=== PATIENT | male | born 1980 | race Caucasian/White ===

== ENCOUNTER 2022-11-05 19:22 | Emergency (ER) | payer SELFPAY ==
[~2022-11-05] VITALS: Ht 188 cm; Wt 109.0 kg
[2022-11-05] MEDS ORDERED: morphine INJ 10 MG/ML 1ML (SYR OR VIAL) IM STA (19:32)
[2022-11-05] MEDS ORDERED: morphine INJ 10 MG/ML 1ML (SYR OR VIAL) ONE (19:32)
--- NOTE | 2022-11-05 19:32 | ED Fall/Injury ---
General Chief Complaint: Trauma-Non Activation Stated Complaint: FALL Source: patient Exam Limitations: no limitations History of Present Illness Date Seen by Provider: Nov 05, 2022 Time Seen by Provider: 19:25 Initial Comments 42-year-old male with no pertinent past medical history coming in after he fell roughly 10 to 12 feet from a ladder landing on his sacrum. Happened shortly prior to arrival. Has been ambulatory. Denies any weakness or numbness. Havi ng severe lower back pain which is sharp, worse with movement, better with rest. Otherwise denies any other acute complaints. Did not hit his head or pass out. Does not take any medicines including no blood thinners. Allergies and Home Medications Allergies Coded Allergies: No Known Drug Allergies (Unverified , 11/05/22) Patient Home Medication List Home Medication List Reviewed: Yes Discontinued Medications Hydrocodone/Acetaminophen (Hydrocodone-Acetamin 5-325 mg) 5 Mg-325 Mg Tablet, 1 TAB PO Q8H PRN for PAIN-MODERATE (5-7) Prescribed by: KARTHIK RIBEIRO on 11/05/222006 Review of Systems Review of Systems Constitutional: No fever Eyes: No Symptoms Reported Ears, Nose, Mouth, Throat: no symptoms reported Respiratory: no symptoms reported Cardiovascular: no symptoms reported Gastrointestinal: no symptoms reported Genitourinary: no symptoms reported Musculoskeletal: see HPI Skin: no symptoms reported Psychiatric/Neurological: No Symptoms Reported Past Vqfainj-Pqfksb-Akhhvo Hx Patient Social History Substance use?: No Past Medical History Surgery/Hospitalization HX: Rotator cuff surgery Surgeries: Yes Physical Exam Vital Signs Vital Signs - First Documented 11/05/22 11/05/22 19:30 19:40 Temp 36.7 Pulse 103 Resp 20 B/P (MAP) 129/82 (98) Pulse Ox 100 Capillary Refill : Height, Weight, BMI Height: '" Weight: lbs. oz. kg; BMI Method: General Appearance: WD/WN, mild distress HEENT: PERRL/EOMI, normal ENT inspection, pharynx normal Neck: non-tender, full range of motion, supple, normal inspection Cardiovascular: regular rate, rhythm, no edema, no murmur Respiratory: chest non-tender, lungs clear, normal breath sounds, no respiratory distress, no accessory muscle use Gastrointestinal: normal bowel sounds, non tender, soft; No distended, No guarding, No rebound Back: normal inspection, no CVA tenderness, vertebral tenderness (Lumbar spine, no thoracic or cervical spine tenderness) Extremities: normal range of motion, non-tender, normal inspection, no pedal edema, no calf tenderness, normal capillary refill Neurologic/Psychiatric: no motor/sensory deficits, alert, normal mood/affect, oriented x 3 Skin: normal color, warm/dry Nimitz Coma Score Best Eye Response: (4) Open Spontaneously Best Verbal Response: (5) Oriented Best Motor Response: (6) Obeys Commands Progress/Results/Core Measures Results/Orders My Orders Orders - KARTHIK RIBEIRO MD Morphine Injection (Morphine Injection (11/05/22 19:32) Ct Lumbar Spine Wo (11/05/22 19:32) Ct Pelvis Wo (11/05/22 19:32) Morphine Injection (Morphine Injection (11/05/22 19:32) Oxycodone Immediate Rel Tablet (Oxyir Ta (11/05/22 20:00) Ketorolac Injection (Toradol Injection) (11/05/22 20:00) Ondansetron Oral Dissolve Tab (Zofran (11/05/22 19:47) Acetaminophen Tablet (Tylenol Tablet) (11/05/22 20:00) Rx-Hydrocodone/Apap 5-325 Mg (Rx-Vicodin (11/05/22 20:15) Medications Given in ED Current Medications Medications Dose Ordered Sig/Sebastián Route Start Time Stop Time Status Last Admin Dose Admin Acetaminophen 1,000 mg ONCE ONCE PO 11/05/22 20:00 11/05/22 20:01 DC 11/05/22 19:56 1,000 MG Acetaminophen/ Hydrocodone Bitart 1 ea Q6H PRN PO 11/05/22 20:15 11/05/22 20:43 DC 11/05/22 20:15 1 EA Ketorolac Tromethamine 15 mg ONCE ONCE IM 11/05/22 20:00 11/05/22 20:01 DC 11/05/22 19:55 15 MG Oxycodone HCl 5 mg ONCE ONCE PO 11/05/22 20:00 11/05/22 20:01 DC 11/05/22 19:56 5 MG Vital Signs/I&O 11/05/22 11/05/22 19:30 19:40 Temp 36.7 36.7 Pulse 103 103 Resp 20 20 B/P (MAP) 129/82 (98) 129/800 (579) Pulse Ox 100 Progress Progress Note : Progress Note 42-year-old male with above history coming in after falling from a ladder. ABCs were intact and vitals were stable on presentation. Physical exam with lumbar spine tenderness and sacral tenderness. He is neurovascularly intact. He was ambulatory prior to arrival. No head or cervical spine issues. CT pelvis and lumbar spine ordered and interpreted by me showing no obvious fracture or dislocation. Radiology review later also negative for acute findings. Patient given IM morphine, Toradol, later oxycodone and Tylenol for his pain. I believe he is otherwise stable for discharge with outpatient follow-up. He was sent home with strict return precautions. We will send a prescription for a couple days worth of pain medication. The patient walked out of the ER quite rapidly without any difficulty. Update 21:50- When I was logging back onto the medical record system after a computer crash, it went to the [place] tracker board. I noticed that the patient with the same last name and similar age checked in for back pain after a fall. At this point I was concerned for the patient potentially checking in under a different name and age and getting opioids. I contacted [place] and asked for what this patient looked like and gave identifiers including his tattoos on knuckles, bald head, lama sweats. It was in fact the exact same patient, checking in with a slightly different name, and slightly different age. At this point I did not feel comfortable going forward with hydrocodone prescription, so it was canceled. I then asked our waterfront director what number the patient gave and identifying information when he came to our ER in [place]. They stated they did not have any notification, and gave numbers that were disconnected. Diagnostic Imaging Diagonstic Imaging: CT (CT pelvis and lumbar spine) Comments NAME: DARREL GUTIERREZ [facility] REC#: [id number] PT STATUS: REG ER : 1980 PHYSICIAN: KARTHIK RIBEIRO MD ADMIT DATE: 11/05/22/ER FS Signed Date of Exam:11/05/22 CT PELVIS WO PROCEDURE: CT pelvis without contrast. TECHNIQUE: Multiple contiguous axial images were obtained through the pelvis without the use of intravenous contrast. Sagittal and coronal reformations were performed. Auto Exposure Controls were utilized during the CT exam to meet ALARA standards for radiation dose reduction. INDICATION: Fall, pelvic pain and injury. COMPARISON: None. FINDINGS: There is mild motion artifact on some images, but no acute fracture is seen in the pelvis or bilateral proximal femurs. Alignment appears normal. The femoral heads are well-seated in the acetabula, bilaterally. Bilateral sacroiliac joints are patent. No free fluid is seen in the pelvis. No mass or lymphadenopathy is seen. IMPRESSION: 1. No acute fracture is seen in the pelvis. 2. Motion artifact resulting in suboptimal evaluation. Dictated by: Dictated on workstation # [id number] Dict: 11/05/221946 Trans: 11/05/221999 PJE [id number] Interpreted by: LIZZIE MCGILL MD Electronically signed by: LIZZIE MCGILL MD 11/05/221999 NAME: DARREL GUTIERREZ [facility] REC#: [id number] PT STATUS: REG ER : 1980 PHYSICIAN: KARTHIK RIBEIRO MD ADMIT DATE: 11/05/22/ER FS Draft Date of Exam:11/05/22 CT LUMBAR SPINE WO PROCEDURE: CT lumbar spine without contrast. TECHNIQUE: Multiple contiguous axial images were obtained through the lumbar spine without the use of intravenous contrast. Sagittal and coronal reformations were then performed. Auto Exposure Controls were utilized during the CT exam to meet ALARA standards for radiation dose reduction. INDICATION: Fall from height with low back pain. COMPARISON: None. FINDINGS: Alignment of the lumbar spine appears normal. Vertebral body heights are preserved. No acute fracture is seen. There are mild disc bulges at L4-L5 and L5-S1. There is a nonobstructing calculus in the right kidney. IMPRESSION: 1. No acute fracture seen in the lumbar spine. 2. Mild disc bulges in the lower lumbar spine. 3. Nonobstructing right nephrolithiasis. Dictated on workstation # [id number] Dict: 11/05/221948 Trans: 11/05/222003 PJE [id number] Interpreted by: LIZZIE MCGILL MD Electronically signed by: Departure Impression Primary Impression: Sacral contusion Qualified Codes: S30.0XXA - Contusion of lower back and pelvis, initial encounter Disposition: HOME, SELF-CARE Condition: Stable Departure-Patient Inst. Decision time for Depature: 20:15 Referrals: NO,LOCAL PHYSICIAN (PCP/Family) Primary Care Physician Patient Instructions: Coccyx Injury (DC) Add. Discharge Instructions: Fortunately nothing is broken, you just have some deep bruising. Try to take ibuprofen as first-line, hydrocodone if having severe pain on top of that. Follow-up with an orthopedic doctor if you are not feeling better in 2 weeks. Work/School Note: Work Release Form Date Seen in the Emergency Department: Nov 05, 2022 Return to Work: Nov 08, 2022 Restrictions: No Restrictions KARTHIK RIBEIRO MD Nov 05, 2022 19:31
[2022-11-05 19:40] VITALS: BP 129/800
[2022-11-05] MEDS ORDERED: ONDANSETRON 4 MG (ZOFRAN) ORAL DISSOLVE TAB PO STA (19:47)
--- NOTE | 2022-11-05 19:51 | Diagnostic Imaging Report ---
PROCEDURE: CT pelvis without contrast. TECHNIQUE: Multiple contiguous axial images were obtained through the pelvis without the use of intravenous contrast. Sagittal and coronal reformations were performed. Auto Exposure Controls were utilized during the CT exam to meet ALARA standards for radiation dose reduction. INDICATION: Fall, pelvic pain and injury. COMPARISON: None. FINDINGS: There is mild motion artifact on some images, but no acute fracture is seen in the pelvis or bilateral proximal femurs. Alignment appears normal. The femoral heads are well-seated in the acetabula, bilaterally. Bilateral sacroiliac joints are patent. No free fluid is seen in the pelvis. No mass or lymphadenopathy is seen. IMPRESSION: 1. No acute fracture is seen in the pelvis. 2. Motion artifact resulting in suboptimal evaluation. Dictated by: Dictated on workstation # [id number]
[2022-11-05] MEDS ORDERED: KETOROLAC 15 MG/ML VIAL IM ONE (20:00)
[2022-11-05] MEDS ORDERED: ACETAMINOPHEN 500 MG TAB (TYLENOL) PO ONE (20:00)
--- NOTE | 2022-11-05 20:04 | Diagnostic Imaging Report ---
PROCEDURE: CT lumbar spine without contrast. TECHNIQUE: Multiple contiguous axial images were obtained through the lumbar spine without the use of intravenous contrast. Sagittal and coronal reformations were then performed. Auto Exposure Controls were utilized during the CT exam to meet ALARA standards for radiation dose reduction. INDICATION: Fall from height with low back pain. COMPARISON: None. FINDINGS: Alignment of the lumbar spine appears normal. Vertebral body heights are preserved. No acute fracture is seen. There are mild disc bulges at L4-L5 and L5-S1. There is a nonobstructing calculus in the right kidney. IMPRESSION: 1. No acute fracture seen in the lumbar spine. 2. Mild disc bulges in the lower lumbar spine. 3. Nonobstructing right nephrolithiasis. Dictated by: Dictated on workstation # [id number]
[2022-11-05] MEDS ORDERED: ACHD5005 PO (20:06)
== END 2022-11-05 20:25 | disposition home or self-care (01) ==
LOC: ER FS 19:28
DX: S30.0XXA Contusion of lower back and pelvis, initial encounter (principal); W11.XXXA Fall on and from ladder, initial encounter
CPT/HCPCS: 72131; 72192